=== PATIENT | male | born 1960 | race Two or more races ===

== ENCOUNTER 2022-09-12 16:44 | Inpatient (IN) | payer MEDICAID, OTHER ==
[~2022-09-12] VITALS: Ht 170.2 cm; Wt 63.7 kg
[2022-09-12 17:23] LABS: Basophils # (auto) 0.1 10 ^3/uL (0-0.2); Eosinophils # (auto) 0.2 10 ^3/uL (0-0.8); Lymphocytes # (auto) 1.3 10 ^3/uL (0.4-5.4)
[2022-09-12 17:24] LABS: Urine WBC None Seen /hpf (0 - 3)
[2022-09-12 17:25] LABS: Basophils % (auto) 0.5 % (0.0-2.0); Eosinophils % (auto) 1.7 % (0.0-7.0); Hemoglobin 12.1 g/dL (13.5-17.5); Lymphocytes % (auto) 9.9 % (10.0-50.0); Mean Corpuscular Hemoglobin 24.3 pg (28.0-32.0); Mean Corpuscular Hgb Conc. 31.8 g/dL (32.0-36.0); Mean Corpuscular Volume 76.4 fL (80.0-100.0); Monocytes % (auto) 8.1 % (0.0-12.0); Neutrophils # (auto) 10.1 10 ^3/uL (1.6-8.6); Neutrophils % (auto) 79.8 % (37.0-80.0); Red Blood Cells 4.97 10^6/uL (4.5-5.90); Red Cell Distribution Width 18.1 % (11.8-14.3); White Blood Cell 12.7 10^3/uL (4.4-10.8)
[2022-09-12 17:36] LABS: Urine Bacteria MOD /hpf (None Seen); Urine Blood Negative /uL (Negative); Urine Mucus MANY (None Seen); Urine Specific Gravity 1.041 (1.001-1.035)
[2022-09-12 17:42] LABS: Albumin 2.3 g/dL (3.4-5.0); Calcium 9.6 mg/dL (8.5-10.1); Potassium 4.1 mmol/L (3.5-5.1)
[2022-09-12 17:45] LABS: BUN/Creatinine Ratio 22.7
[2022-09-12 17:47] LABS: Bilirubin, Total 0.5 mg/dL (0.2-1.0)
[2022-09-12] MEDS ORDERED: ONDANSETRON HCL 4 MG/2 ML VIAL IV ONE (20:45)
[2022-09-12] MEDS ORDERED: MORPHINE SULFATE 4 MG/ML SYR/VIAL IV ONE (20:45)
[2022-09-12] MEDS ORDERED: LACTATED RINGER'S 2,000 ML IV ONE (20:45)
[2022-09-13] MEDS ORDERED: ACETAMINOPHEN 325 MG TAB PO PRN (01:45)
[2022-09-13] MEDS ORDERED: MORPHINE SULFATE INJ 2 MG/ml SYRG IV PRN (01:45)
[2022-09-13] MEDS ORDERED: ONDANSETRON HCL 4 MG/2 ML VIAL IV PRN (01:45)
[2022-09-13] MEDS ORDERED: HYDROcodone-ACET 5/325MG TAB PO PRN (01:45)
[2022-09-13] MEDS ORDERED: LORazepam 0.5 MG TAB PO PRN (01:45)
[2022-09-13] MEDS ORDERED: DOCUSATE SOD 100 MG CAP PO PRN (01:45)
[2022-09-13] MEDS ORDERED: MAALOX PLUS or MAALOX 30 ML PO PRN (01:45)
[2022-09-13] MEDS: cefTRIAXone 1GM/50ML D5W 50 ML IV SCH ×2 (04:06→23:04)
[2022-09-13] MEDS: SODIUM CHLORIDE 0.9% 1,000 ML IV SCH ×2 (04:06→18:25)
[2022-09-13 05:45] LABS: Basophils # (auto) 0.2 10 ^3/uL (0-0.2); Basophils % (auto) 1.3 % (0.0-2.0); Eosinophils # (auto) 0.2 10 ^3/uL (0-0.8); Eosinophils % (auto) 1.5 % (0.0-7.0); Hemoglobin 11.7 g/dL (13.5-17.5); Lymphocytes # (auto) 1.1 10 ^3/uL (0.4-5.4); Lymphocytes % (auto) 8.5 % (10.0-50.0); Mean Corpuscular Hemoglobin 24.9 pg (28.0-32.0); Mean Corpuscular Hgb Conc. 32.5 g/dL (32.0-36.0); Mean Corpuscular Volume 76.7 fL (80.0-100.0); Monocytes # (auto) 1.2 10 ^3/uL (0-1.3); Monocytes % (auto) 9.1 % (0.0-12.0); Neutrophils # (auto) 10.4 10 ^3/uL (1.6-8.6); Neutrophils % (auto) 79.6 % (37.0-80.0); Nucleated Red Blood Cells % 0.1 %; Red Blood Cells 4.69 10^6/uL (4.5-5.90); Red Cell Distribution Width 18.3 % (11.8-14.3)
[2022-09-13 06:13] LABS: Calcium 9.2 mg/dL (8.5-10.1); Potassium 4.5 mmol/L (3.5-5.1)
[2022-09-13 06:15] LABS: BUN/Creatinine Ratio 26.7
[2022-09-13 18:08] VITALS: BP 96/62
[2022-09-13 18:36] LABS: Amylase 131 U/L (25-115); Lipase 1052 U/L (73-393)
[2022-09-13] MEDS ORDERED: CLINIMIX PER PHARMACY 0 ML IV SCH (18:45)
[2022-09-13] MEDS: AMINO ACID INFUSION IN D10W 1,000 ML IV NR (20:31)
[2022-09-13 22:00] VITALS: BP 118/74
[2022-09-13] MEDS: PANTOPRAZOLE 40 MG/10 ML VIAL INJ IV SCH (23:03)
[2022-09-14] MEDS ORDERED: DEXTROSE (50%) 50ML SYRG IV SCH
[2022-09-14] MEDS: ACCU-CHEK COMFORT CURVE STRIP VI SCH ×5 (00:01→23:42)
[2022-09-14 05:00] VITALS: BP 99/59
[2022-09-14] MEDS: InsuLIN REG 1unit/0.01ml Soln (100units/ml) SC SCH ×5 (05:55→23:42)
[2022-09-14 07:38] LABS: Basophils # (auto) 0.1 10 ^3/uL (0-0.2); Monocytes # (auto) 0.8 10 ^3/uL (0-1.3); White Blood Cell 8.2 10^3/uL (4.4-10.8)
[2022-09-14 07:41] LABS: Basophils % (auto) 1.1 % (0.0-2.0); Eosinophils # (auto) 0.1 10 ^3/uL (0-0.8); Eosinophils % (auto) 1.7 % (0.0-7.0); Hematocrit 30.9 % (41.0-53.0); Lymphocytes # (auto) 0.7 10 ^3/uL (0.4-5.4); Lymphocytes % (auto) 8.7 % (10.0-50.0); Mean Corpuscular Hemoglobin 24.9 pg (28.0-32.0); Mean Corpuscular Hgb Conc. 32.5 g/dL (32.0-36.0); Mean Corpuscular Volume 76.7 fL (80.0-100.0); Neutrophils # (auto) 6.4 10 ^3/uL (1.6-8.6); Neutrophils % (auto) 78.5 % (37.0-80.0); Red Blood Cells 4.02 10^6/uL (4.5-5.90); Red Cell Distribution Width 17.6 % (11.8-14.3)
[2022-09-14 07:45] LABS: Albumin 1.6 g/dL (3.4-5.0); Magnesium 1.6 mg/dL (1.6-2.6); Potassium 3.5 mmol/L (3.5-5.1)
[2022-09-14 07:50] LABS: Bilirubin, Total 0.2 mg/dL (0.2-1.0); Phosphorus 2.7 mg/dL (2.5-4.90); Total Protein 4.1 g/dL (6.4-8.2)
[2022-09-14] MEDS ORDERED: LIDOCAINE VISCOUS 2% 15ML UD ONE (08:15)
[2022-09-14] MEDS ORDERED: diphenhdrAMINE HCL 50 MG/1 ML VL ONE (08:15)
[2022-09-14] MEDS ORDERED: fentaNYL CITRATE 100 MCG/2 ML VL ONE (08:18)
[2022-09-14 09:00] VITALS: BP 95/59
[2022-09-14] MEDS: PANTOPRAZOLE 40 MG/10 ML VIAL INJ IV SCH ×2 (09:28→21:13)
[2022-09-14 10:48] LABS: INR 1.03 (0.9-1.15)
[2022-09-14] MEDS: SODIUM CHLORIDE 0.9% 1,000 ML IV SCH (11:05)
[2022-09-14 13:00] VITALS: BP 97/60
[2022-09-14] MEDS: POTASSIUM CHL 20MEQ/100ML 100 ML IV ONE ×2 (15:33→15:50)
[2022-09-14 17:00] VITALS: BP 94/60
[2022-09-14] MEDS: cefTRIAXone 1GM/50ML D5W 50 ML IV SCH (21:13)
[2022-09-14] MEDS: AMINO ACID INFUSION IN D10W 1,000 ML IV NR (21:13)
[2022-09-14 22:00] VITALS: BP 106/64
[2022-09-15] MEDS: SODIUM CHLORIDE 0.9% 1,000 ML IV SCH ×2 (03:50→20:40)
[2022-09-15 05:00] VITALS: BP 100/61
[2022-09-15] MEDS: ACCU-CHEK COMFORT CURVE STRIP VI SCH ×4 (05:30→23:10)
[2022-09-15] MEDS: InsuLIN REG 1unit/0.01ml Soln (100units/ml) SC SCH ×4 (05:30→23:10)
[2022-09-15] MEDS ORDERED: NALOXONE HCL 0.4 MG/ML VIAL ONE (07:33)
[2022-09-15] MEDS ORDERED: FLUMAZENIL 0.1 MG/ML INJ 10ML MDV IV ONE (07:33)
[2022-09-15] MEDS ORDERED: LIDOCAINE VISCOUS 2% 15ML UD ONE (07:34)
[2022-09-15 08:00] VITALS: BP 93/63
[2022-09-15 08:07] LABS: Albumin 1.9 g/dL (3.4-5.0); Magnesium 1.9 mg/dL (1.6-2.6)
[2022-09-15 08:12] LABS: BUN/Creatinine Ratio 23.5; Bilirubin, Total 0.4 mg/dL (0.2-1.0); Phosphorus 2.3 mg/dL (2.5-4.90); Total Protein 4.7 g/dL (6.4-8.2)
[2022-09-15] MEDS: fentaNYL CITRATE 100 MCG/2 ML VL ONE ×2 (08:33→08:39)
[2022-09-15] MEDS: MIDAZOLAM HCL 2MG/2ML 2ml VIAL (1mg/ml) ONE ×2 (08:33→08:37)
[2022-09-15] MEDS: diphenhdrAMINE HCL 50 MG/1 ML VL ONE ×2 (08:33→08:36)
[2022-09-15 09:30] VITALS: BP 98/59
[2022-09-15] MEDS ORDERED: SODIUM PHOSP 40 MEQ in D5W 5% 250 ML IV ONE (10:00)
[2022-09-15] MEDS: SUCRALFATE 1 GM/10 ML ORAL SUSP PO SCH ×3 (11:51→23:10)
[2022-09-15] MEDS: PANTOPRAZOLE 40 MG/10 ML VIAL INJ IV SCH ×2 (11:51→23:10)
[2022-09-15 13:00] VITALS: BP 100/61
[2022-09-15] MEDS ORDERED: AMINO ACID INFUSION IN D10W 1,000 ML IV NR (20:00)
[2022-09-15 22:00] VITALS: BP 105/69
[2022-09-16 05:00] VITALS: BP 101/70
[2022-09-16] MEDS: InsuLIN REG 1unit/0.01ml Soln (100units/ml) SC SCH ×4 (06:00→23:16)
[2022-09-16] MEDS: ACCU-CHEK COMFORT CURVE STRIP VI SCH ×4 (06:04→23:16)
[2022-09-16] MEDS: SUCRALFATE 1 GM/10 ML ORAL SUSP PO SCH ×5 (06:05→21:36)
[2022-09-16 07:38] LABS: Basophils # (auto) 0.1 10 ^3/uL (0-0.2); Basophils % (auto) 0.8 % (0.0-2.0); Eosinophils # (auto) 0.3 10 ^3/uL (0-0.8); Eosinophils % (auto) 2.8 % (0.0-7.0); Hematocrit 34.3 % (41.0-53.0); Hemoglobin 11.1 g/dL (13.5-17.5); Lymphocytes # (auto) 0.9 10 ^3/uL (0.4-5.4); Lymphocytes % (auto) 9.2 % (10.0-50.0); Mean Corpuscular Hemoglobin 25.1 pg (28.0-32.0); Mean Corpuscular Hgb Conc. 32.3 g/dL (32.0-36.0); Mean Corpuscular Volume 77.6 fL (80.0-100.0); Monocytes # (auto) 0.9 10 ^3/uL (0-1.3); Monocytes % (auto) 9.3 % (0.0-12.0); Neutrophils # (auto) 7.8 10 ^3/uL (1.6-8.6); Neutrophils % (auto) 77.9 % (37.0-80.0); Red Blood Cells 4.42 10^6/uL (4.5-5.90); Red Cell Distribution Width 17.8 % (11.8-14.3)
[2022-09-16 07:49] LABS: Albumin 1.8 g/dL (3.4-5.0); Calcium 8.1 mg/dL (8.5-10.1); Magnesium 1.8 mg/dL (1.6-2.6); Potassium 3.6 mmol/L (3.5-5.1)
[2022-09-16 07:52] LABS: BUN/Creatinine Ratio 21.1; Phosphorus 2.7 mg/dL (2.5-4.90)
[2022-09-16 09:00] VITALS: BP 109/68
[2022-09-16] MEDS: PANTOPRAZOLE 40 MG/10 ML VIAL INJ IV SCH ×2 (12:38→21:36)
[2022-09-16 13:00] VITALS: BP 111/66
[2022-09-16] MEDS: SODIUM CHLORIDE 0.9% 1,000 ML IV SCH (13:05)
[2022-09-16 17:13] VITALS: BP 102/70
[2022-09-16] MEDS: AMINO ACID INFUSION IN D10W 1,000 ML IV NR (21:36)
[2022-09-16 22:00] VITALS: BP 106/68
[2022-09-17] VITALS (10 sets, daily range): BP systolic 100–116; BP diastolic 50–71
[2022-09-17] MEDS: InsuLIN REG 1unit/0.01ml Soln (100units/ml) SC SCH ×4 (06:00→23:51)
[2022-09-17] MEDS: SODIUM CHLORIDE 0.9% 1,000 ML IV SCH ×2 (06:04→22:25)
[2022-09-17] MEDS: ACCU-CHEK COMFORT CURVE STRIP VI SCH ×4 (06:04→23:51)
[2022-09-17] MEDS: SUCRALFATE 1 GM/10 ML ORAL SUSP PO SCH ×4 (06:05→21:30)
[2022-09-17 08:09] LABS: Potassium 3.5 mmol/L (3.5-5.1)
[2022-09-17 08:15] LABS: Albumin 1.9 g/dL (3.4-5.0); BUN/Creatinine Ratio 20.3; Bilirubin, Total 0.4 mg/dL (0.2-1.0); Calcium 8.1 mg/dL (8.5-10.1); Magnesium 1.6 mg/dL (1.6-2.6); Phosphorus 2.5 mg/dL (2.5-4.90); Total Protein 5.1 g/dL (6.4-8.2)
[2022-09-17] MEDS ORDERED: ceFAZolin 1GM/50ML 100 ML IV ONE (08:44)
[2022-09-17] MEDS: PANTOPRAZOLE 40 MG/10 ML VIAL INJ IV SCH ×2 (08:48→21:30)
[2022-09-17] MEDS: HEPARIN SODIUM (PORCINE) 5000 UNITS/ML 1ML VIAL ONE ×2 (08:52→09:45)
[2022-09-17] MEDS: HEPARIN 1,000 UNITS/ml 1ML VIAL ONE ×2 (08:52→09:45)
[2022-09-17] MEDS: ceFAZolin 1GM VL ONE ×2 (08:53→09:45)
[2022-09-17] MEDS ORDERED: fentaNYL CITRATE 100 MCG/2 ML VL ONE ×2 (09:10→09:25)
[2022-09-17] MEDS ORDERED: MIDAZOLAM HCL 2MG/2ML 2ml VIAL (1mg/ml) ONE (09:11)
[2022-09-17] MEDS ORDERED: LIDOCAINE 1%HCL (LOCAL ANESTH) 10 ML MDV ONE (09:19)
[2022-09-17] MEDS ORDERED: MAGNESIUM SULFATE 1GM/100ML 100 ML IV ONE (10:00)
[2022-09-17] MEDS ORDERED: ONDANSETRON HCL 4 MG/2 ML VIAL IV PRN (10:00)
[2022-09-17] MEDS ORDERED: HYDROmorphone HCL 2 MG/ML VL/or syr IV PRN ×2 (10:00)
[2022-09-17] MEDS ORDERED: PROPOFOL 10 MG/ML 20 ML IV ONE ×2 (10:13→10:14)
[2022-09-17] MEDS ORDERED: POTASSIUM PHOSP 22MEQ(15MMOLE) in NS 100 ML IV ONE (12:00)
[2022-09-17] MEDS ORDERED: SUCCINYLCHOLINE CHLORIDE 20 MG/ML 10ML VIAL IV ONE (13:26)
[2022-09-17] MEDS ORDERED: TPN PER PHARMACY 0 ML IV SCH (13:30)
[2022-09-17] MEDS: HYDROmorphone HCL 2 MG/ML VL/or syr IV PRN (17:37)
[2022-09-17] MEDS: AMINO ACID INFUSION IN D10W 1,000 ML IV NR (21:05)
[2022-09-17] MEDS: TEMAZEPAM 15 MG CAP PO PRN (21:31)
[2022-09-18] MEDS: HYDROmorphone HCL 2 MG/ML VL/or syr IV PRN (03:08)
[2022-09-18 05:00] VITALS: BP 107/68
[2022-09-18] MEDS: InsuLIN REG 1unit/0.01ml Soln (100units/ml) SC SCH ×3 (06:00→17:57)
[2022-09-18] MEDS: ACCU-CHEK COMFORT CURVE STRIP VI SCH ×3 (06:02→17:57)
[2022-09-18] MEDS: SUCRALFATE 1 GM/10 ML ORAL SUSP PO SCH ×4 (07:00→22:00)
[2022-09-18 07:39] LABS: Albumin 1.8 g/dL (3.4-5.0); BUN/Creatinine Ratio 19.1; Calcium 8.5 mg/dL (8.5-10.1); Magnesium 1.8 mg/dL (1.6-2.6); Phosphorus 2.9 mg/dL (2.5-4.90); Potassium 3.9 mmol/L (3.5-5.1)
[2022-09-18 08:30] VITALS: BP 114/70
[2022-09-18] MEDS: PANTOPRAZOLE 40 MG/10 ML VIAL INJ IV SCH ×2 (11:04→22:21)
[2022-09-18 13:00] VITALS: BP 110/66
[2022-09-18] MEDS: SODIUM CHLORIDE 0.9% 1,000 ML IV SCH (15:05)
[2022-09-18 16:30] VITALS: BP 94/60
[2022-09-18 20:00] VITALS: BP 108/72
[2022-09-18] MEDS ORDERED: TPN PER PHARMACY IV NR ×7 (20:00)
[2022-09-18 22:00] VITALS: BP 108/72
[2022-09-19 05:00] VITALS: BP 113/69
[2022-09-19] MEDS: ACCU-CHEK COMFORT CURVE STRIP VI SCH ×4 (06:18→18:00)
[2022-09-19] MEDS: InsuLIN REG 1unit/0.01ml Soln (100units/ml) SC SCH ×4 (06:40→18:00)
[2022-09-19] MEDS: SUCRALFATE 1 GM/10 ML ORAL SUSP PO SCH ×4 (06:41→22:00)
[2022-09-19 07:16] LABS: Albumin 1.9 g/dL (3.4-5.0); Calcium 8.3 mg/dL (8.5-10.1); Magnesium 1.8 mg/dL (1.6-2.6); Potassium 3.6 mmol/L (3.5-5.1)
[2022-09-19 07:20] LABS: BUN/Creatinine Ratio 17.1; Bilirubin, Total 0.6 mg/dL (0.2-1.0); Phosphorus 2.3 mg/dL (2.5-4.90); Total Protein 5.1 g/dL (6.4-8.2)
[2022-09-19 09:00] VITALS: BP 111/76
[2022-09-19] MEDS: PANTOPRAZOLE 40 MG/10 ML VIAL INJ IV SCH ×2 (09:13→22:00)
[2022-09-19] MEDS ORDERED: POTASSIUM PHOSPHATE 26.4 MEQ in SODIUM CHL 0.9% 100 ML IV ONE (11:15)
[2022-09-19 13:00] VITALS: BP 109/73
[2022-09-19] MEDS ORDERED: SUCR1SUS10 PO (13:05)
[2022-09-19] MEDS ORDERED: PANT40TA2 PO (13:05)
[2022-09-19] MEDS ORDERED: LACT10SO3 PO (13:08)
[2022-09-19] MEDS ORDERED: HYDR-4902 PO (13:08)
[2022-09-19] MEDS: SODIUM CHLORIDE 0.9% 1,000 ML IV SCH (13:27)
[2022-09-19] MEDS ORDERED: IOHEXOL 300 MG/ML 100ML BOTTLE IJ ONE (14:14)
[2022-09-19] MEDS: LACTULOSE 20Gm/30ML SOLN PO PRN (15:28)
[2022-09-19 17:00] VITALS: BP 110/78
[2022-09-19 20:00] VITALS: BP 106/81
[2022-09-19] MEDS ORDERED: TPN PER PHARMACY IV NR ×7 (20:00)
[2022-09-19 23:04] VITALS: BP 106/81
[2022-09-20] MEDS: ACCU-CHEK COMFORT CURVE STRIP VI SCH ×4 (00:15→18:00)
[2022-09-20] MEDS: InsuLIN REG 1unit/0.01ml Soln (100units/ml) SC SCH ×4 (00:17→18:00)
[2022-09-20 05:02] VITALS: BP 112/68
[2022-09-20 08:46] LABS: Potassium 4.2 mmol/L (3.5-5.1)
[2022-09-20 09:09] LABS: Albumin 2.1 g/dL (3.4-5.0); BUN/Creatinine Ratio 17.8; Bilirubin, Total 0.5 mg/dL (0.2-1.0); Calcium 8.6 mg/dL (8.5-10.1); Phosphorus 3.3 mg/dL (2.5-4.90); Total Protein 5.2 g/dL (6.4-8.2)
[2022-09-20 09:12] VITALS: BP 113/70
[2022-09-20] MEDS: SUCRALFATE 1 GM/10 ML ORAL SUSP PO SCH ×4 (10:38→21:51)
[2022-09-20] MEDS: LACTULOSE 20Gm/30ML SOLN PO PRN ×2 (10:38→21:49)
[2022-09-20] MEDS: PANTOPRAZOLE 40 MG/10 ML VIAL INJ IV SCH ×2 (10:46→21:49)
[2022-09-20] MEDS: SODIUM CHLORIDE 0.9% 1,000 ML IV SCH ×2 (12:38→17:05)
[2022-09-20 13:00] VITALS: BP 125/77
[2022-09-20 17:00] VITALS: BP 115/67
[2022-09-20] MEDS ORDERED: TPN PER PHARMACY IV NR ×9 (20:00)
[2022-09-20 22:00] VITALS: BP 108/64
[2022-09-21] MEDS: HYDROmorphone HCL 2 MG/ML VL/or syr IV PRN ×2 (01:30→21:51)
[2022-09-21 05:00] VITALS: BP 105/68
[2022-09-21] MEDS: InsuLIN REG 1unit/0.01ml Soln (100units/ml) SC SCH ×5 (06:00→23:26)
[2022-09-21] MEDS: ACCU-CHEK COMFORT CURVE STRIP VI SCH ×5 (06:08→23:26)
[2022-09-21] MEDS: SUCRALFATE 1 GM/10 ML ORAL SUSP PO SCH ×4 (06:28→21:41)
[2022-09-21 07:22] LABS: BUN/Creatinine Ratio 20.8; Calcium 9.1 mg/dL (8.5-10.1)
[2022-09-21 07:33] LABS: Bilirubin, Total 0.4 mg/dL (0.2-1.0); Phosphorus 3.1 mg/dL (2.5-4.90); Total Protein 5.4 g/dL (6.4-8.2)
[2022-09-21 08:55] VITALS: BP 116/74
[2022-09-21] MEDS: SODIUM CHLORIDE 0.9% 1,000 ML IV SCH ×2 (09:45→23:26)
[2022-09-21] MEDS: PANTOPRAZOLE 40 MG/10 ML VIAL INJ IV SCH ×2 (10:21→21:41)
[2022-09-21 12:37] VITALS: BP 104/63
[2022-09-21 16:46] VITALS: BP 120/67
[2022-09-21] MEDS ORDERED: TPN PER PHARMACY IV NR ×16 (20:00)
[2022-09-21 22:00] VITALS: BP 122/73
[2022-09-22 05:00] VITALS: BP 104/66
[2022-09-22] MEDS: ACCU-CHEK COMFORT CURVE STRIP VI SCH ×4 (05:58→23:35)
[2022-09-22] MEDS: InsuLIN REG 1unit/0.01ml Soln (100units/ml) SC SCH ×4 (05:58→23:35)
[2022-09-22] MEDS: SUCRALFATE 1 GM/10 ML ORAL SUSP PO SCH ×5 (06:35→23:09)
[2022-09-22 07:07] LABS: Calcium 9.6 mg/dL (8.5-10.1); Potassium 3.4 mmol/L (3.5-5.1)
[2022-09-22 07:10] LABS: BUN/Creatinine Ratio 25.3
[2022-09-22 07:24] LABS: Bilirubin, Total 0.4 mg/dL (0.2-1.0); Phosphorus 3.4 mg/dL (2.5-4.90); Total Protein 5.7 g/dL (6.4-8.2)
[2022-09-22 09:01] VITALS: BP 101/70
[2022-09-22] MEDS: PANTOPRAZOLE 40 MG/10 ML VIAL INJ IV SCH ×2 (09:56→23:03)
[2022-09-22] MEDS ORDERED: POTASSIUM CHL 20MEQ/100ML 100 ML IV ONE (10:45)
[2022-09-22 13:00] VITALS: BP 108/66
[2022-09-22 17:22] VITALS: BP 109/67
[2022-09-22] MEDS: SODIUM CHLORIDE 0.9% 1,000 ML IV SCH (19:05)
[2022-09-22 20:00] VITALS: BP 116/78
[2022-09-22] MEDS ORDERED: TPN PER PHARMACY IV NR ×18 (20:00)
[2022-09-22 22:00] VITALS: BP 116/78
[2022-09-22] MEDS: TEMAZEPAM 15 MG CAP PO PRN (23:03)
[2022-09-22] MEDS: HYDROmorphone HCL 2 MG/ML VL/or syr IV PRN (23:36)
[2022-09-23 05:00] VITALS: BP 111/74
[2022-09-23] MEDS: InsuLIN REG 1unit/0.01ml Soln (100units/ml) SC SCH (06:00)
[2022-09-23] MEDS: ACCU-CHEK COMFORT CURVE STRIP VI SCH (06:15)
[2022-09-23 07:03] LABS: Basophils # (auto) 0.1 10 ^3/uL (0-0.2); Eosinophils # (auto) 0.2 10 ^3/uL (0-0.8); Eosinophils % (auto) 1.9 % (0.0-7.0); Lymphocytes # (auto) 0.8 10 ^3/uL (0.4-5.4)
[2022-09-23 07:07] LABS: Basophils % (auto) 0.7 % (0.0-2.0); Hematocrit 32.8 % (41.0-53.0); Hemoglobin 10.6 g/dL (13.5-17.5); Lymphocytes % (auto) 8.8 % (10.0-50.0); Mean Corpuscular Hemoglobin 25.4 pg (28.0-32.0); Mean Corpuscular Hgb Conc. 32.3 g/dL (32.0-36.0); Mean Corpuscular Volume 78.7 fL (80.0-100.0); Monocytes # (auto) 0.8 10 ^3/uL (0-1.3); Monocytes % (auto) 9.6 % (0.0-12.0); Neutrophils # (auto) 6.9 10 ^3/uL (1.6-8.6); Nucleated Red Blood Cells % 0.2 %; Red Blood Cells 4.17 10^6/uL (4.5-5.90); Red Cell Distribution Width 18.9 % (11.8-14.3); White Blood Cell 8.8 10^3/uL (4.4-10.8)
[2022-09-23 07:25] LABS: Albumin 1.9 g/dL (3.4-5.0); Magnesium 2.1 mg/dL (1.6-2.6); Potassium 3.7 mmol/L (3.5-5.1)
[2022-09-23 07:27] LABS: BUN/Creatinine Ratio 27.3
[2022-09-23 07:30] LABS: Bilirubin, Total 0.5 mg/dL (0.2-1.0); Phosphorus 3.2 mg/dL (2.5-4.90); Total Protein 5.3 g/dL (6.4-8.2)
[2022-09-23 09:00] VITALS: BP 112/66
[2022-09-23] MEDS ORDERED: TPN PER PHARMACY IV NR ×9 (20:00)
== END 2022-09-23 09:25 | disposition home health service (06) | DRG 240 ==
LOC: ER 16:44 → OVERFLOW 09-13 01:42 → WEST WING 09-13 13:40
PROVIDERS: ADMIT Hospitalist; ATTEND Internal Medicine
PROC: 0DB68ZX Excision of Stomach, Via Natural or Artificial Opening Endoscopic, Diagnostic (ICD-10-PCS; 2022-09-15)
PROC: 0DB98ZX Excision of Duodenum, Via Natural or Artificial Opening Endoscopic, Diagnostic (ICD-10-PCS; principal; 2022-09-15 08:26)
PROC: 02HV33Z Insertion of Infusion Device into Superior Vena Cava, Percutaneous Approach (ICD-10-PCS; 2022-09-17)
PROC: 0DB68ZX Excision of Stomach, Via Natural or Artificial Opening Endoscopic, Diagnostic (ICD-10-PCS; 2022-09-17)
DX: C16.9 Malignant neoplasm of stomach, unspecified (principal); K85.90 Acute pancreatitis without necrosis or infection, unspecified; K56.609 Unspecified intestinal obstruction, unspecified as to partial versus complete obstruction; E44.0 Moderate protein-calorie malnutrition; K31.1 Adult hypertrophic pyloric stenosis; C85.93 Non-Hodgkin lymphoma, unspecified, intra-abdominal lymph nodes; J90 Pleural effusion, not elsewhere classified; K29.70 Gastritis, unspecified, without bleeding; Z20.822 Contact with and (suspected) exposure to COVID-19; C78.6 Secondary malignant neoplasm of retroperitoneum and peritoneum; R62.7 Adult failure to thrive; K44.9 Diaphragmatic hernia without obstruction or gangrene; E88.09 Other disorders of plasma-protein metabolism, not elsewhere classified; Z68.1 Body mass index [BMI] 19.9 or less, adult
CPT/HCPCS: 36415; 43239; 71045; 71260; 74177; 80048; 80053; 80069; 81001; 82150; 82962; 83690; 83735; 84100; 84478; 85025; 85610; 86850; 86900; 86901; 87426; 93005; C9113; G0378; J0330; J0690; J0696; J1815; J2001; J2250; J2704; J3480; J7060

== ENCOUNTER 2022-09-24 23:02 | Inpatient (IN) | payer MEDICAID ==
[~2022-09-24] VITALS: Ht 170.2 cm; Wt 61.0 kg
[~2022-09-24 23:02] MED LIST: HYDR-4902 PO; LACT10SO3 PO; PANT40TA2 PO; SUCR1SUS10 PO
[2022-09-25 01:07] LABS: Eosinophils # (auto) 0.1 10 ^3/uL (0-0.8); Mean Corpuscular Hemoglobin 24.8 pg (28.0-32.0); Neutrophils # (auto) 6.7 10 ^3/uL (1.6-8.6)
[2022-09-25 01:09] LABS: Basophils # (auto) 0.1 10 ^3/uL (0-0.2); Basophils % (auto) 0.6 % (0.0-2.0); Eosinophils % (auto) 1.8 % (0.0-7.0); Hematocrit 34.3 % (41.0-53.0); Hemoglobin 10.5 g/dL (13.5-17.5); Lymphocytes # (auto) 0.6 10 ^3/uL (0.4-5.4); Lymphocytes % (auto) 7.2 % (10.0-50.0); Mean Corpuscular Hgb Conc. 30.7 g/dL (32.0-36.0); Mean Corpuscular Volume 80.8 fL (80.0-100.0); Monocytes # (auto) 0.9 10 ^3/uL (0-1.3); Monocytes % (auto) 10.7 % (0.0-12.0); Neutrophils % (auto) 79.7 % (37.0-80.0); Red Blood Cells 4.24 10^6/uL (4.5-5.90); Red Cell Distribution Width 19.4 % (11.8-14.3); White Blood Cell 8.4 10^3/uL (4.4-10.8)
[2022-09-25 01:21] LABS: Albumin 1.8 g/dL (3.4-5.0); Potassium 3.5 mmol/L (3.5-5.1)
[2022-09-25 01:24] LABS: Bilirubin, Total 0.2 mg/dL (0.2-1.0); Total Protein 5.5 g/dL (6.4-8.2)
[2022-09-25 01:36] LABS: Lactic Acid w/Reflex 12.7 mmol/L (0.4-2.0)
[2022-09-25] MEDS ORDERED: cefTRIAXone 1GM/50ML D5W 50 ML IV ONE (03:00)
[2022-09-25] MEDS ORDERED: ONDANSETRON HCL 4 MG/2 ML VIAL IV ONE (03:00)
[2022-09-25] MEDS ORDERED: HYDROmorphone HCL 2 MG/ML VL/or syr IV ONE (03:00)
[2022-09-25] MEDS ORDERED: ONDANSETRON HCL 4 MG/2 ML VIAL IV PRN (03:15)
[2022-09-25] MEDS ORDERED: TPN PER PHARMACY 0 ML IV SCH (03:15)
[2022-09-25] MEDS ORDERED: MORPHINE SULFATE INJ 2 MG/ml SYRG IV PRN (03:15)
[2022-09-25] MEDS: PIPERACILLIN-TAZOB 3.375GM 100 ML IV SCH ×3 (06:15→20:50)
[2022-09-25] MEDS: PANTOPRAZOLE 40 MG TAB PO SCH (08:43)
[2022-09-25 09:05] LABS: INR 1.01 (0.9-1.15); Partial Thromboplastin Time 28.2 sec (24.6-33.4)
[2022-09-25] MEDS ORDERED: DEXTROSE (50%) 50ML SYRG IV SCH (12:39)
[2022-09-25 12:51] LABS: Magnesium 1.9 mg/dL (1.6-2.6)
[2022-09-25] MEDS: ACCU-CHEK COMFORT CURVE STRIP VI SCH ×2 (13:40→18:10)
[2022-09-25] MEDS: InsuLIN REG 1unit/0.01ml Soln (100units/ml) SC SCH ×2 (13:40→18:00)
[2022-09-25] MEDS ORDERED: HYDROmorphone HCL 2 MG/ML VL/or syr IV PRN ×2 (17:15→17:30)
[2022-09-25] MEDS ORDERED: HYDROmorphone HCL 2 MG/ML VL/or syr IV SCH (18:00)
[2022-09-25] MEDS ORDERED: TPN PER PHARMACY IV NR ×10 (20:00)
[2022-09-26] MEDS: ACCU-CHEK COMFORT CURVE STRIP VI SCH ×3 (00:29→12:44)
[2022-09-26] MEDS: InsuLIN REG 1unit/0.01ml Soln (100units/ml) SC SCH ×3 (00:30→12:44)
[2022-09-26] MEDS: PIPERACILLIN-TAZOB 3.375GM 100 ML IV SCH ×2 (00:33→07:07)
[2022-09-26 07:13] LABS: Basophils # (auto) 0.1 10 ^3/uL (0-0.2); Eosinophils # (auto) 0.1 10 ^3/uL (0-0.8); Mean Corpuscular Hemoglobin 25.6 pg (28.0-32.0); Neutrophils # (auto) 5.2 10 ^3/uL (1.6-8.6); Red Blood Cells 4.24 10^6/uL (4.5-5.90)
[2022-09-26 07:19] LABS: Basophils % (auto) 1.1 % (0.0-2.0); Eosinophils % (auto) 1.8 % (0.0-7.0); Hematocrit 33.9 % (41.0-53.0); Hemoglobin 10.9 g/dL (13.5-17.5); Lymphocytes # (auto) 0.6 10 ^3/uL (0.4-5.4); Lymphocytes % (auto) 8.3 % (10.0-50.0); Mean Corpuscular Hgb Conc. 32.1 g/dL (32.0-36.0); Mean Corpuscular Volume 79.9 fL (80.0-100.0); Monocytes # (auto) 0.7 10 ^3/uL (0-1.3); Monocytes % (auto) 10.9 % (0.0-12.0); Neutrophils % (auto) 77.9 % (37.0-80.0); Nucleated Red Blood Cells % 0.3 %; Red Cell Distribution Width 19.5 % (11.8-14.3); White Blood Cell 6.7 10^3/uL (4.4-10.8)
[2022-09-26 07:41] LABS: Potassium 4.3 mmol/L (3.5-5.1)
[2022-09-26 07:52] LABS: Albumin 1.8 g/dL (3.4-5.0); BUN/Creatinine Ratio 22.4; Calcium 8.7 mg/dL (8.5-10.1); Magnesium 1.9 mg/dL (1.6-2.6)
[2022-09-26 07:55] LABS: Bilirubin, Total 0.4 mg/dL (0.2-1.0); Phosphorus 3.6 mg/dL (2.5-4.90)
[2022-09-26] MEDS ORDERED: cefTRIAXone 1GM/50ML D5W 50 ML IV SCH (09:00)
[2022-09-26] MEDS: PANTOPRAZOLE 40 MG TAB PO SCH (10:00)
[2022-09-26 17:00] VITALS: BP 116/66
[2022-09-26] MEDS ORDERED: TPN PER PHARMACY IV NR ×9 (20:00)
== END 2022-09-26 18:48 | disposition left against medical advice (07) | DRG 282 ==
LOC: EDBD 23:02 → ER 23:02 → OVERFLOW 09-25 03:13 → CENTRAL 09-26 14:28 → TELE-CENTR 09-26 17:23
PROVIDERS: ADMIT Nurse Practitioner; ATTEND Internal Medicine
DX: K85.90 Acute pancreatitis without necrosis or infection, unspecified (principal); R18.8 Other ascites; E44.0 Moderate protein-calorie malnutrition; C85.90 Non-Hodgkin lymphoma, unspecified, unspecified site; R62.7 Adult failure to thrive; E86.0 Dehydration; E11.9 Type 2 diabetes mellitus without complications; I10 Essential (primary) hypertension; K31.9 Disease of stomach and duodenum, unspecified; Z20.822 Contact with and (suspected) exposure to COVID-19; Z53.29 Procedure and treatment not carried out because of patient's decision for other reasons; Z68.20 Body mass index [BMI] 20.0-20.9, adult
CPT/HCPCS: 36415; 76705; 76942; 80053; 82962; 83605; 83690; 83735; 83986; 84100; 84478; 85025; 85610; 85730; 87040; 87205; 87426; 89051; 93005; 96365; 96375; 96376; G0378; J0696; J2405; J2543